=== PATIENT | female | born 1950 | race Caucasian/White ===

== ENCOUNTER 2018-06-14 11:33 | Inpatient (IN) ==
--- NOTE | 2018-06-14 12:37 | EKG Report ---
Test Performed on : 06/14/2018 12:07:29 PM Test Reason : syncope Blood Pressure : / mmHG Vent. Rate : 065 BPM Atrial Rate : 065 BPM P-R Int : 130 ms QRS Dur : 090 ms QT Int : 436 ms P-R-T Axes : 006 024 092 degrees QTc Int : 453 ms Normal sinus rhythm. Nonspecific T wave abnormality Abnormal ECG When compared with ECG of 28-SEP-2017 19:00, Nonspecific T wave abnormality, improved in Lateral leads Unconfirmed Result
[2018-06-14 12:49] LABS: BASO# 0.04 X1000 (0.0-0.2); BASO% 0.7 % (0.0-0.8); EOS# 0.13 X1000 (0.0-0.7); EOS% 2.3 % (0.0-10.0); HEMATOCRIT 32.6 % (37.0-47.0); HEMOGLOBIN 9.6 g/dL (12.0-16.0); IMM GRAN# 0.01 X1000 (0.0-0.04); IMM GRAN% 0.2 % (0.0-0.5); LYMPH# 1.71 X1000 (1.2-3.4); LYMPH% 29.9 % (20.5-51.1); MCH 22.6 PG (27-31); MCHC 29.4 g/dL (33-37); MCV 76.9 FL (81-99); MONO# 0.61 X1000 (0.11-0.59); MONO% 10.7 % (1.7-9.3); MPV 9.4 FL (7.4-10.4); NEUT# 3.21 X1000 (1.4-6.5); NEUT% 56.2 % (42.2-75.2); PLT 293 X1000 (130-400); RBC 4.24 XMIL (4.2-5.4); RDW 21.2 % (11.5-14.5); WBC 5.71 X1000 (4.8-10.8)
[2018-06-14 13:02] LABS: INR 0.93; PROTIME 12.9 Seconds (11.0-16.0)
[2018-06-14 13:03] LABS: PTT 24.5 Seconds (22.3-41.8)
[2018-06-14 13:07] LABS: AGAP 11; ALBUMIN 4.2 g/dL (3.5-5.0); ALKALINE PHOSPHATASE 149 U/L (32-104); BUN 14 mg/dL (8-22); CHLORIDE 102 mmol/L (98-107); CK PROFILE 63 U/L (24-173); COSMO 276; CREATININE 0.7 mg/dL (0.5-0.9); ESTIMATED GFR > 60; GLUCOSE 103 mg/dL (70-104); GOT 20 U/L (10-30); GPT 14 U/L (10-36); POTASSIUM 4.2 mmol/L (3.5-5.1); SODIUM 138 mmol/L (136-145); TCO2 25 mmol/L (25-35); TOTAL PROTEIN 7.2 g/dL (6.3-8.3)
[2018-06-14 13:09] LABS: INFLUENZA A NEGATIVE (NEGATIVE); INFLUENZA B NEGATIVE (NEGATIVE)
--- NOTE | 2018-06-14 13:13 | Diag Imaging Result Doc PS360 ---
EXAM: CHEST-2 VIEWS 06/14/2018 HISTORY: syncope TECHNIQUE: PA and lateral chest COMMENT: There are sternotomy wires. There is no evidence of acute cardiac or pulmonary disease. Compared to the previous study of 02/05/2018 there has been no significant change. There may be COPD. IMPRESSION: Stable chest. Electronically signed by Jose Teague 06/14/2018 1:11 PM
[2018-06-14] MEDS ORDERED: PROTONIX PO PRN (13:52)
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
[2018-06-14] MEDS: NEURONTIN PO SCH (17:30)
[2018-06-14] MEDS: TEGRETOL PO SCH (17:30)
[2018-06-14 18:55] LABS: URINE SOURCE CLEAN CATCH
[2018-06-14 19:27] LABS: BILIRUBIN URINE NEGATIVE (NEGATIVE); BLOOD URINE NEGATIVE (NEGATIVE); COLOR YELLOW; GLUCOSE URINE NEGATIVE (NEGATIVE); KETONE URINE NEGATIVE (NEGATIVE); LEUKOCYTES URINE NEGATIVE (NEGATIVE); NITRITE URINE NEGATIVE (NEGATIVE); PROTEIN URINE NEGATIVE (NEGATIVE); SP GRAVITY URINE 1.005; TURBIDITY URINE CLEAR (CLEAR); UROBILINOGEN URINE NORMAL (NORMAL)
[2018-06-14 19:28] LABS: UR EPITHELIAL CELLS <10 /HPF (<10); URINE BACTERIA NEGATIVE /HPF; URINE RBC <10 /HPF (<10); URINE WBC <10 /HPF (<10)
[2018-06-14] MEDS: ZOCOR PO SCH (21:16)
[2018-06-14] MEDS: COREG PO SCH (21:16)
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
--- NOTE | 2018-06-14 22:19 | Diag Imaging Result Doc PS360 ---
EXAM: CT HEAD W/O CONTRAST - 06/14/2018 HISTORY: seizures TECHNIQUE: CT head without contrast COMPARISON: 09/28/2017 FINDINGS: There are postsurgical changes of right frontotemporoparietal craniotomy similar to prior. There is encephalomalacia at the right temporal parietal junction similar to prior. There is a tiny hyperdense structures at the lateral margin of the surgical bed which is stable and compatible with postsurgical change. There are also postsurgical changes of interval right posterior fossa craniotomy, with cranial prosthesis. There is no substantial posterior fossa encephalomalacia identified. There is no evidence of intracranial hemorrhage, mass effect, midline shift, or hydrocephalus. There is no evidence of recent infarct, although acute infarcts may not be immediately visible. IMPRESSION: Postsurgical changes of right frontotemporoparietal craniotomy, with encephalomalacia at the right temporal parietal junction, similar to prior. Postsurgical changes of interval right posterior fossa craniotomy. No visible acute intracranial abnormality. This exam was performed using automated exposure control, adjustment of mA or kV according to patient size, and/or use of iterative reconstruction technique. Electronically signed by Adelso Vázquez 06/14/2018 10:17 PM
[2018-06-15] MEDS: SYNTHROID PO SCH (06:47)
--- NOTE | 2018-06-15 07:39 | EKG Report ---
Test Performed on : 06/15/2018 07:24:04 AM Test Reason : syncope, CAD Blood Pressure : / mmHG Vent. Rate : 065 BPM Atrial Rate : 065 BPM P-R Int : 156 ms QRS Dur : 092 ms QT Int : 422 ms P-R-T Axes : 024 020 097 degrees QTc Int : 438 ms Normal sinus rhythm. T wave abnormality, consider anterior ischemia Abnormal ECG When compared with ECG of 14-JUN-2018 12:07, (Unconfirmed) T wave inversion more evident in Anterior leads Confirmed by Usman ROSARIO, Artie Dickinson ([id number]) on 06/15/2018 12:22:28 PM
[2018-06-15 08:14] LABS: BASO# 0.06 X1000 (0.0-0.2); BASO% 1.6 % (0.0-0.8); EOS# 0.18 X1000 (0.0-0.7); EOS% 4.7 % (0.0-10.0); HEMATOCRIT 32.8 % (37.0-47.0); HEMOGLOBIN 9.8 g/dL (12.0-16.0); LYMPH# 1.26 X1000 (1.2-3.4); LYMPH% 33.1 % (20.5-51.1); MCH 23.2 PG (27-31); MCHC 29.9 g/dL (33-37); MCV 77.5 FL (81-99); MONO# 0.41 X1000 (0.11-0.59); MONO% 10.8 % (1.7-9.3); MPV 9.8 FL (7.4-10.4); NEUT% 49.8 % (42.2-75.2); PLT 277 X1000 (130-400); RBC 4.23 XMIL (4.2-5.4); RDW 21.1 % (11.5-14.5); WBC 3.81 X1000 (4.8-10.8)
[2018-06-15 08:16] LABS: AGAP 5; ALB/GLOB RATIO 1.6; ALBUMIN 4.4 g/dL (3.5-5.0); ALKALINE PHOSPHATASE 139 U/L (32-104); BUN 15 mg/dL (8-22); CALCIUM 9.5 mg/dL (8.8-10.2); CHLORIDE 106 mmol/L (98-107); COSMO 284; CREATININE 0.7 mg/dL (0.5-0.9); ESTIMATED GFR > 60; GLUCOSE 98 mg/dL (70-104); GOT 16 U/L (10-30); GPT 11 U/L (10-36); POTASSIUM 4.2 mmol/L (3.5-5.1); SODIUM 142 mmol/L (136-145); TCO2 31 mmol/L (25-35); TOTAL BILIRUBIN 0.25 mg/dL (0.20-1.00); TOTAL PROTEIN 7.1 g/dL (6.3-8.3)
[2018-06-15] MEDS ORDERED: LEXISCAN ONE (10:00)
[2018-06-15] MEDS: NEURONTIN PO SCH ×3 (12:12→20:02)
[2018-06-15] MEDS: TEGRETOL PO SCH ×3 (12:13→20:03)
[2018-06-15] MEDS: PLAVIX PO SCH (12:13)
[2018-06-15] MEDS: IMDUR PO SCH (12:13)
[2018-06-15] MEDS: COREG PO SCH ×2 (12:13→20:03)
--- NOTE | 2018-06-15 13:24 | ECHO REPORT ---
ORDER DATE: 06/15/2018 ECHOCARDIOGRAPHIC MEASUREMENTS: Interventricular septum 0.8, left ventricular posterior wall 0.8, diastolic diameter 5.8, left atrium 4, aorta 3.2. FINDINGS: 1. There is left atrial enlargement. 2. Normal left ventricular cavity size. Estimated ejection fraction of 35%. There is diastolic dysfunction and global hypokinesis in addition to mainly apical and anteroseptal hypokinesis. 3. Aortic valve leaflets are trileaflet. 4. Mitral valve was normal. 5. Tricuspid valve was normal. 6. Pulmonic valve was normal. 7. There is no aortic stenosis. There is trace aortic regurgitation. There is mild mitral regurgitation. Mild tricuspid regurgitation. Peak velocity across the tricuspid valve was 2.2 m/sec. 8. There is no pericardial effusion or obvious intracardiac mass or thrombus seen. cc: Ebenezer Ferrera MD
[2018-06-15] MEDS: ULTRAM PO PRN ×2 (13:27→19:53)
--- NOTE | 2018-06-15 14:50 | PROGRESS NOTE ---
DATE: 06/15/2018 SUBJECTIVE: This patient just had an echocardiogram and a stress test done. Dr. Ferrera talked to her at the bedside, and likely she is going to be on the monitor for at least 30 days. It looks like her ejection fraction has been about the same. No new issues at this moment. I will monitor this patient today and I will discharge this patient in the morning. OBJECTIVE: Vital Signs: Temperature 98.2 degrees, pulse 71, respiratory rate 15, blood pressure 151/66, oxygen saturation 100% on room air. HEENT: Head normocephalic. No trauma. PERRLA. Right facial weakness and pain to palpation at the level of the forehead on the right side and face. Neck: Supple. No JVD. Central trachea. Chest: Clear to auscultation. No wheezing. No rales. Abdomen: Soft. Nontender, nondistended. No hepatosplenomegaly. Extremities: No edema. No clubbing. No cyanosis. Neurological examination: The patient is alert and oriented x3. No focal deficits. LABORATORY: WBC 3.8, hemoglobin 9.8 hematocrit 32.8 and platelet count is going to be 277. Sodium 142, potassium 4.2, chloride 106, bicarbonate 31. BUN 15, creatinine 0.7 , glucose 98, calcium 9.5, albumin 4.4. Troponins negative x3. ASSESSMENT AND PLAN: 1. Syncope. The exact cause of syncope is so far unknown. Vital signs and laboratory have been stable. She denies any seizure disorder recently. She has been complaining of face pain/trigeminal neuralgia today, and she received a dose of tramadol, as well as her gabapentin, with a negative stress test and echocardiogram, but we did not see any new changes. We will monitor this patient today and tomorrow. Hopefully, we can discharge this patient home. 2. History of coronary artery disease. Aware. Cardiology on board. 3. Nausea resolved. 4. Trigeminal neuralgia. Continue with the same management. I added tramadol to her medications. 5. Hypertension. Stable. 6. Hypothyroidism. Continue with the same management. 7. Peripheral artery disease. Aware. 8. Microcytic anemia, pending anemia workup. cc: Sergio Aragon MD MTDD
[2018-06-15] MEDS: ZOCOR PO SCH (20:03)
[2018-06-16] MEDS: ULTRAM PO PRN (02:10)
[2018-06-16] MEDS: SYNTHROID PO SCH (06:36)
[2018-06-16 07:25] LABS: IRON SATURATION 10 %; TIBC 364 ug/dL; TOTAL IRON 36 ug/dL (49-151); UNBOUND IRON 328 ug/dL (112-346)
[2018-06-16] MEDS: COREG PO SCH (08:23)
[2018-06-16] MEDS: TEGRETOL PO SCH ×2 (08:23→13:51)
[2018-06-16] MEDS: IMDUR PO SCH (08:23)
[2018-06-16] MEDS: PLAVIX PO SCH (08:23)
[2018-06-16] MEDS: NEURONTIN PO SCH ×2 (08:23→13:51)
[2018-06-16 08:44] LABS: FERRITIN 20 ng/mL (13-150)
[2018-06-16] MEDS ORDERED: FERROUS SULFATE PO SCH (09:00)
--- NOTE | 2018-06-16 09:36 | Diag Imaging Result Document ---
PROCEDURE NAME: MYOCARDIAL PERF SCAN, STR/REST - 06/15/2018 PROCEDURE PERFORMED: Lexiscan Cardiolite stress test. DESCRIPTION OF PROCEDURE: Lexiscan was infused per standard protocol. There was no chest pain. There was no shortness of breath. Baseline electrocardiogram revealed normal sinus rhythm, nonspecific ST-T changes. Stress electrocardiogram revealed [address]-depression in the inferior and lateral leads with T-wave inversion positive for ischemia. Cardiolite was injected. Gated SPECT images were obtained in standard views. There were 10.7 mCi of Cardiolite injected for the rest phase and 30.8 mCi of Cardiolite injected for the stress phase. Images revealed a fixed defect in the left ventricular apex. In addition, there was a fixed defect in the distal anteroapical wall suggestive of infarct or scar. In addition, there is sapphire-infarct ischemia in the mid anterior wall. Left ventricular ejection fraction by gated SPECT was 46%. CONCLUSIONS: 1. No chest pain. 2. Positive Lexiscan stress electrocardiogram. 3. Myocardial perfusion images revealed a fixed defect in the left ventricular apex and in the distal anterior wall, suggestive of infarct or scar associated with sapphire-infarct ischemia in the mid anterior wall with minor sapphire-infarct ischemia. Left ventricular ejection fraction by gated SPECT was 46%. cc: Ebenezer Ferrera MD
--- NOTE | 2018-06-16 10:27 | CARDIOLOGY CONSULTATION ---
DATE: 06/16/2018 REASON FOR CONSULTATION: Cardiology was consulted. The patient is admitted with syncope. HISTORY OF PRESENT ILLNESS: A 68-year-old lady with history of coronary artery disease, coronary artery bypass grafting, who presented to the emergency room after having passed out while she was getting a haircut. She felt dizzy, had some diaphoresis, subsequently passed out and this was witnessed. She has history of seizures having had this in the past following intracranial bleed. However, at this time there was no incontinence. There was no seizure- like activity which was witnessed. The patient does not complain of chest pain suggestive of angina. There is no history of recent palpitations. She has a complicated cardiac and neurosurgical history as listed below. REVIEW OF SYSTEMS: A 14 point review of system was done. GI System: There is no history of nausea, vomiting, diarrhea. There is no history of hematemesis or melena. Central nervous system: No focal weakness to suggest a CVA or TIA. System: There is no dysuria or hematuria. Respiratory System: There is no history of cough, expectoration, hemoptysis. There is no history of fevers or chills. PAST MEDICAL HISTORY: 1. Coronary artery disease, status post coronary artery bypass grafting 2017 RAYO to left anterior descending artery. Cardiac catheterization 08/16/2017 revealed left main 40 to 50 percent, ostium LAD 90%, ramus previous stent 100%, circumflex 75. Prior stents occluded with faint collaterals. 2. She underwent a cardiac catheterization on 10/19/2017 with a view to see if the circumflex could be dilated; however, cardiac catheterization revealed the LAD 99% ostia RAYO to left anterior descending artery. The patent ramus was occluded. High OM was occluded , site of stent, circumflex collateralized, eccentric stenosis noted. The degree of stenosis was assessed using FFR. There was no resting gradient. 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 It is occluded. Medical therapy recommended. 3. Chronic dyspnea on exertion. 4. Hypertension. 5. Hyperlipidemia. 6. Peripheral vascular disease, status post angioplasty to right femoral. 7. Carotid bruit. 8. Anxiety disorder. 9. Trigeminal neuralgia. Underwent multiple surgeries at [facility] with resultant ocular and facial and neuropathy and no benefit, and she continues to have trigeminal area pain. 10. Meniere's disease. 11. Hypothyroidism. 12. History of head injury status post subdural hematoma, subarachnoid hemorrhage, on 06/10/2016. 13. Seizure disorder. HOME MEDICATIONS: Simvastatin 40, Protonix 40, gabapentin 300 p.o. t.i.d., Coreg 12.5 b.i.d., levothyroxine 50, isosorbide mononitrate, Plavix 75, tramadol 200, aspirin 81, trazodone 100, carbamazepine as above, docusate 100. ALLERGIES: She is allergic to penicillin, Phenazopyridine and doxycycline. PHYSICAL EXAMINATION: Vital Signs: Blood pressure was 124/74. Cardiovascular System: Normal jugular venous pressure. There no thyromegaly. No carotid bruit. First and second heart sounds were heard. There is faint systolic murmur. Respiratory System: Normal air entry. There are no crepitations or rhonchi. Abdomen: Soft, nontender. There was no guarding or rigidity. Bowel sounds were heard. Central nervous system: Alert and was moving all 4 extremities. Examination of extremities revealed no pedal edema. HEENT: Atraumatic, normocephalic. Pupils were reacting to light. Detailed central nervous system examination not performed. LABORATORY EXAMINATION: She was ruled out for myocardial infarction by cardiac enzymes. Sodium 142, potassium 4.2, BUN 15, creatinine 0.7. WBC 3.82, hemoglobin 9.8, hematocrit 32, platelet count of 277. ASSESSMENT: Ms. Judith Lara is a 68-year-old lady with history of coronary artery disease, coronary artery bypass grafting, peripheral vascular disease, intracranial hemorrhage in the past, history of seizures and multiple surgeries for trigeminal neuralgia, intracranial surgeries and [facility] presents with syncope. From a cardiac standpoint, she underwent a Cardiolite stress test and an echocardiogram stress test revealed a fixed defect in the distal anteroapical wall associated with small sapphire-infarct ischemia in the mid anterior wall. This has not changed much. Prior to her bypass grafting, she does not complain of chest pain. Would recommend: 1. Continue with medical management. 2. She underwent an echocardiogram that revealed ejection fraction of 35%. She has grade 2 dyspnea on exertion, at times grade 2-3. She is currently euvolemic. PLAN: We will get a 30 day loop monitor as an outpatient. I will see her back in 4 weeks. Given her coronary artery disease, LV dysfunction, and dyspnea on exertion, she may be a candidate for AICD placement. We will evaluate as an outpatient. RECOMMENDATIONS: Continue with all her home medications. Thank you for the consult. We will follow hospital course. cc: MD MACK Santos
[2018-06-16 11:48] VITALS: BP 108/66
--- NOTE | 2018-06-17 14:31 | DISCHARGE SUMMARY ---
ADMISSION DATE: 06/14/2018 DISCHARGE DATE: 06/16/2018 CONSULTATIONS: Dr. Ferrera of Cardiology. PERTINENT PROCEDURES: 1. Head CT. Postsurgical changes to the right frontotemporal temporal parietal craniotomy with encephalomalacia at the right temporal parietal junction, similar to prior. 2. Echocardiogram: EF of 35%, diastolic dysfunction, and global hypokinesis in addition to apical and anterior septal hypokinesis. 3. Myocardial perfusion scan was positive. Revealed a fixed defect in the left ventricular apex and the distal anterior wall suggestive of infarct or scar associated with sapphire-infarct ischemia in mid anterior wall with a minor sapphire-infarct ischemia. DISCHARGE DIAGNOSES: 1. Syncope, exact cause of syncope is unknown. Vital signs and laboratory data have been stable. The patient denies any seizure disorder history. She was complaining of trigeminal neuralgia pain. She was given tramadol and gabapentin. 2. Coronary artery disease. She underwent a Cardiolite stress test with an echocardiogram that revealed a fixed defect in the distal anterior apical wall associated with small sapphire-infarct ischemia in the mid anterior wall. This has not changed much from priors. They recommend to continue with medical management. They will do a 30-day loop monitor as an outpatient and Dr. Ferrera will follow back up with her in 4 weeks. They believe that given her LV dysfunction and dyspnea on exertion, that she may be a candidate for AICD placement that can be evaluated as an outpatient. 3. Nausea resolved. 4. Trigeminal neuralgia. Tramadol was added to her medications. 5. Hypertension stable. 6. Hypothyroidism. Continue Synthroid. 7. Peripheral artery disease. Aware. 8. Microcytic anemia. She is being discharged on ferrous sulfate. HOSPITAL COURSE: Briefly, Ms. Lara is a 68-year-old female with history of coronary artery disease status post CABG, peripheral vascular disease status post angioplasty to the right femoral trigeminal neuralgia. History of head injury, status post subdural hematoma and subarachnoid hemorrhage with craniotomy. She presented to the ED after having a syncopal episode while she was getting a haircut. She felt dizzy, had some diaphoresis, subsequently passed out and this was witnessed. There was no seizure-like activity with the syncopal episode. She did not complain of chest discomfort. No palpitations. She was seen at [facility] and transferred over to [facility] for specialty care with Cardiology. She underwent a head CT that did not show anything new. Repeat echocardiogram as well as a Cardiolite stress test that all revealed a fixed defect in the distal anterior apical wall associated with a small sapphire- infarct ischemia in the mid anterior wall. These are unchanged from prior. She has had no more syncopal episodes since being admitted. Cardiology recommends to continue with current medical management. They will set up a 30-day loop monitor as an outpatient and follow back up in 4 weeks. Given her coronary artery disease and LV dysfunction and dyspnea on exertion he feels she may be a candidate for an AICD placement that can be evaluated as an outpatient as well. Continue on all of her home medications. She did complain of some trigeminal neuralgia pain for which we added tramadol to her treatment. She was also found to be microcytic, anemic. Ferrous sulfate was added. From a cardiology standpoint, she is stable for discharge. VITAL SIGNS: Temperature is 98.1 degrees, heart rate 72, respirations 16, blood pressure 108/66, O2 is 96% on room air. DISCHARGE DIET: Healthy heart. DISCHARGE MEDICATIONS: 1. Zocor 40 mg p.o. at bedtime. 2. Desyrel 100 mg p.o. at bedtime. 3. Tylenol Extra Strength 500 mg tablets, 2 tablets p.o. q.4 hours p.r.n. pain. 4. Tylenol p.m. 1 each p.o. at bedtime. 5. Aspirin 81 mg p.o. daily. 6. Tegretol 200 mg p.o. t.i.d. 7. Carvedilol 6.25 mg p.o. b.i.d. 8. Plavix 75 mg p.o. daily. 9. Stool softener 100 mg p.o. daily. 10. Gabapentin 300 mg p.o. t.i.d. 11. Isosorbide mononitrate ER 60 mg tablet p.o. daily. 12. Synthroid 50 mcg p.o. daily. 13. Protonix 40 mg p.o. daily p.r.n. indigestion. 14. Ultram 200 mg p.o. q.6 hours p.r.n. pain. 15. Ferrous sulfate 325 mg p.o. daily. FOLLOWUP: Ms. Lara is being discharged home. She will have a loop monitor recording set up by Dr. Ferrera. He will also have her evaluated for possibility of placement of AICD as an outpatient. She is to take all medications as prescribed. She can return to the ED or call 911 for any worsening of symptoms. Discharged time: 35 minutes Dictated by MARCIE Singh for Sergio Aragon MD cc: MD Ebenezer Gabriel MD David Francis, MD [facility]
== END 2018-06-16 15:22 | disposition home health service (06) | DRG 312 ==
LOC: P.ED 11:33 → 3N 16:06
PROVIDERS: ATTEND Internal Medicine
CPT/HCPCS: 70450; 71020; 71046; 78451; 78452; 80053; 81001; 82550; 82607; 82728; 82746; 82948; 83540; 83550; 83880; 84484; 85025; 85610; 85730; 87275; 87276; 87804; 93005; 93010; 93017; 93306; 99285; A9270; A9500; J2785; XXXXX